=== PATIENT | female | born 1950 | race Caucasian/White ===

== ENCOUNTER 2017-12-03 12:45 | Emergency (ER) | payer MEDICARE ==
[2017-12-03 14:36] LABS: BASOPHILS % (AUTO) 0.5 %; EOSINOPHILS % (AUTO) 0.6 %; LYMPHOCYTES # (AUTO) 1.3 10^3/uL (1.5-3.5); LYMPHOCYTES % (AUTO) 15.9 %; MEAN CORPUSCULAR HEMOGLOBIN 29.1 pg (27.0-31.0); MEAN CORPUSCULAR HGB CONC 33.6 g/dL (32.0-36.0); MEAN CORPUSCULAR VOLUME 86.8 fL (81.0-99.0); MEAN PLATELET VOLUME 8.4 fL (7.9-10.8); MONOCYTES # (AUTO) 0.7 10^3/uL (0.0-1.0); MONOCYTES % (AUTO) 8.8 %; NEUTROPHILS % (AUTO) 74.2 %; PLT - PLATELET COUNT 310 10^3/uL (130-450); RED BLOOD COUNT 4.45 10^6/uL (4.20-5.40); RED CELL DISTRIBUTION WIDTH 12.8 % (12.0-15.0)
[2017-12-03 14:50] LABS: ALBUMIN 3.5 g/dL (3.2-5.5); ALBUMIN/GLOBULIN RATIO 0.9 (1.0-2.2); BILIRUBIN,TOTAL 0.4 mg/dL (0.2-1.0); CALCIUM 9.3 mg/dL (8.5-10.3); CREATININE 0.6 mg/dL (0.4-1.0); TOTAL PROTEIN 7.2 g/dL (6.7-8.2)
--- NOTE | 2017-12-03 16:51 | ED Physician Documentation ---
History of Present Illness - Stated complaint Stated Complaint: S/P SURGERY DRAIN BAG - Chief complaint Chief Complaint: Abd Pain - History obtained from History obtained from: Patient - History of Present Illness Timing: Today Pain level max: 0 Pain level now: 0 Improved by: nothing Worsened by: nothing - Additonal information Additional information: Patient is a 67-year-old female who is status post laparoscopic cholecystectomy at [facility] 4 days ago. She has a SCOTT drain in place and states there was bloody drainage in the SCOTT drain today. Called her surgeon who referred her to the closest ER. No fevers. No vomiting. No pain. Review of Systems Constitutional: denies: Fever, Chills Ears: denies: Ear pain Nose: denies: Rhinorrhea / runny nose, Congestion Respiratory: denies: Cough GI: denies: Vomiting, Hematemesis, Bloody / black stool : denies: Dysuria Skin: denies: Rash Musculoskeletal: denies: Neck pain, Back pain Neurologic: denies: Headache PD PAST MEDICAL HISTORY - Past Medical History Past Medical History: No - Past Surgical History Past Surgical History: No - Present Medications Home Medications: Ambulatory Orders Medication Instructions Recorded Confirmed No Known Home Medications [No 12/03/17 12/03/17 Known Home Medications] - Allergies Allergies/Adverse Reactions: Allergies Allergy/AdvReac Type Severity Reaction Status Date / Time No Known Drug Allergies Allergy Verified 12/03/17 12:56 - Living Situation Living Situation: reports: With family Living Arrangement: reports: At home - Social History Does the pt have substance abuse?: No - Family History Family history: reports: Non contributory PD ED PE NORMAL - Vitals Vital signs reviewed: Yes - General General: Alert and oriented X 3, No acute distress - HEENT HEENT: Moist mucous membranes - Neck Neck: Supple, no meningeal sign - Cardiac Cardiac: RRR - Respiratory Respiratory: No respiratory distress, Clear bilaterally - Abdomen Abdomen: Soft, Non tender, Non distended, Other (inicisions are CDI without signs of infection.) - Derm Derm: Warm and dry - Neuro Neuro: Alert and oriented X 3 - Psych Psych: Normal mood, Normal affect Results - Vitals Vitals: Vital Signs - 24 hr 12/03/17 12/03/17 12/03/17 12:51 15:28 17:33 Temperature 36.8 C Heart Rate 77 76 76 Respiratory 16 16 15 Rate Blood Pressure 129/61 129/57 L 127/80 O2 Saturation 99 95 99 Oxygen O2 Source Room air - Labs Labs: Laboratory Tests 12/03/17 12/03/17 14:33 14:33 WBC 8.0 RBC 4.45 Hgb 13.0 Hct 38.6 MCV 86.8 MCH 29.1 MCHC 33.6 RDW 12.8 Plt Count 310 MPV 8.4 Neut # 6.0 Lymph # 1.3 L [place] # 0.7 Eos # 0.0 Baso # 0.0 Absolute Nucleated RBC 0.00 Nucleated RBC % 0.0 Sodium 141 Potassium 4.1 Chloride 102 Carbon Dioxide 28 Anion Gap 11.0 BUN 15 Creatinine 0.6 Estimated GFR (MDRD) 99 Glucose 103 H Calcium 9.3 Total Bilirubin 0.4 AST 32 ALT 48 Alkaline Phosphatase 51 Total Protein 7.2 Albumin 3.5 Globulin 3.7 Albumin/Globulin Ratio 0.9 L Lipase 27 PD MEDICAL DECISION MAKING - ED course Complexity details: reviewed results, re-evaluated patient, considered differential, d/w patient, d/w family, d/w organizational effectiveness consultant ED course: Patient is a 67-year-old female who presents to the emergency department with bloody drainage into her SCOTT drain from her recent cholecystectomy. Hemoglobin and hematocrit are stable from her presurgical laboratory values. Discussed the case with Dr. Hassan, general surgery who performed her surgery and she will follow-up in the office on Tuesday. Patient is very well-appearing, nontoxic. Normal vital signs. No evidence of excessive hemorrhage. No evidence of infection. Patient counseled regarding signs and symptoms for which I believe and urgent re-evaluation would be necessary. Patient with good understanding of and agreement to plan and is comfortable going home at this time This document was made in part using voice recognition software. While efforts are made to proofread this document, sound alike and grammatical errors may occur. Patient has not restarted any of her warfarin yet. We will continue to hold this Departure - Departure Disposition: Home, Self Care Clinical Impression: SCOTT drain bleeding Qualifiers: Encounter type: initial encounter Qualified Code(s): T85.838A - Hemorrhage due to other internal prosthetic devices, implants and grafts, initial encounter Condition: Good Instructions: ED Wound Check Post Op Bleeding Follow-Up: Elvia Phelan MD [Primary Care Provider] - Comments: I spoke with Dr. Hassan today, she would like to see you in clinic on Tuesday. Return sooner if you worsen. Discharge Date/Time: 12/03/17 17:33
[2017-12-03 17:35] VITALS: BP 127/80
== END 2017-12-03 17:33 | disposition home or self-care (01) ==
LOC: ED 12:45
DX: T85.838A Hemorrhage due to other internal prosthetic devices, implants and grafts, initial encounter (principal); Z98.890 Other specified postprocedural states
CPT/HCPCS: 36415; 80053; 83690; 85025; 99282; 99283

== ENCOUNTER 2023-07-26 15:37 | Outpatient (CLI) | payer MEDICARE | END 2023-07-26 15:38 | disposition home or self-care (01) | LOC: LAB.N 15:37 | PROVIDERS: ATTEND Nurse Practitioner | DX: D68.69 Other thrombophilia (principal); Z79.01 Long term (current) use of anticoagulants; I48.0 Paroxysmal atrial fibrillation | CPT/HCPCS: 36416; 85610 ==

== ENCOUNTER 2023-08-03 10:01 | Outpatient (CLI) | payer MEDICARE ==
--- NOTE | 2023-08-10 15:36 | Mammography Report ---
BILATERAL DIGITAL SCREENING MAMMOGRAM 3D/2D: 08/03/2023 CLINICAL: Routine screening. No prior exams were available for comparison. Both breasts are heterogeneously dense, which may obscure small masses (category c / 51-75% glandular tissue). There are benign calcifications in both breasts. No significant masses, calcifications, or other findings are seen in either breast. IMPRESSION: BENIGN There is no mammographic evidence of malignancy. A 1 year screening mammogram is recommended. Based on the Tyrer Cuzick model (a risk assessment model) the patients lifetime risk is 8.3% and her 10 year risk is 8.3%. According to the ACR, ACS, and NCCN guidelines, an annual breast MRI exam theodore g with mammogram is recommended if the patients lifetime risk is 20% or greater. This exam was interpreted at Station ID: [id number]. NOTE: For mammograms, a report in lay terms will be sent to the patient. Approximately 15% of breast malignancies will not be visualized mammographically. In the management of a palpable breast mass, a negative mammogram must not discourage biopsy of a clinically suspicious lesion. Electronically Signed By: Boom gonzales/erica:08/10/2023 08:24:30 letter sent: No_Letter ACR BI-RADS Category 2: Benign Finding(s) 3342F PARENCHYMAL PATTERN: (D) - The breast(s) demonstrate(s) heterogeneously dense fibroglandular parenchy ma. BI-RADS CATEGORY: (2) - 2 Mammogram [id number] 1 year screening LATERALITY: (B)
== END 2023-08-03 10:02 | disposition home or self-care (01) ==
LOC: DI 10:01
PROVIDERS: ATTEND Nurse Practitioner
DX: Z12.31 Encounter for screening mammogram for malignant neoplasm of breast (principal); R92.333 Mammographic heterogeneous density, bilateral breasts

== ENCOUNTER 2023-08-03 10:01 | Outpatient (CLI) | payer MEDICARE ==
--- NOTE | 2023-08-03 13:19 | DEXA Report ---
PROCEDURE: Dexa Spine and/or Hip INDICATIONS: POST MENOPAUSAL TECHNIQUE: Dual energy x-ray absorptiometry (DXA) was performed on a iSites System. Regions measur ed are the AP Spine, femoral neck, and if needed forearm. COMPARISON: None FINDINGS: Lumbar Spine: Bone Mineral Density 1.279 g/cm/cm,T score 0.8. Normal Left Femoral Neck: Bone Mineral Density 0.963 g/cm/cm, T score -0.5, normal. Left Hip: Bone Mineral Density 0.959 g/cm/cm,T score -0.4. Normal (T score greater or equal to -1.0: NORMAL) (T score from -1.1 to -2.4: OSTEOPENIA) (T score less than or equal to -2.5 to: OSTEOPOROSIS) Impression: By WHO criteria, this patient has normal bone density. Patients with diagnosis of osteoporosis or osteopenia should have regular bone mineral density assess ment. For those eligible for Medicare, routine testing is allowed once every 2 years. Testing frequ ency can be increased for patients who have rapidly progressing disease or for those who are receivin g medical therapy to restore bone mass. Reviewed by: Funmi Wood MD on 08/03/2023 1:18 PM PST Approved by: Funmi Wood MD on 08/03/2023 1:18 PM PST Station ID: [id number]
== END 2023-08-03 10:02 | disposition home or self-care (01) ==
LOC: DI 10:01
PROVIDERS: ATTEND Nurse Practitioner
DX: Z78.0 Asymptomatic menopausal state (principal)

== ENCOUNTER 2023-08-05 08:00 | Outpatient (CLI) | payer MEDICARE | END 2023-08-05 23:59 | disposition home or self-care (01) | LOC: LAB.WCP 08:00 | PROVIDERS: ATTEND Nurse Practitioner | DX: Z79.01 Long term (current) use of anticoagulants (principal); D68.69 Other thrombophilia; I48.0 Paroxysmal atrial fibrillation ==

== ENCOUNTER 2023-08-05 09:44 | Outpatient (CLI) | payer MEDICARE ==
--- NOTE | 2023-08-05 10:43 | Sleep Patient Instructions ---
Sleep Center Visit Summary - Patient Visit Information Reason for Visit: Initial consult for evaluation of sleep disordered breathing and other sleep issues. - Patient Instructions Instructions Attached: Sleep Study Additional Instructions: You will be completing a sleep study, either an in-lab polysomnography (PSG) or home sleep study (HST). You will follow-up in the sleep care office after the sleep study is completed to hear the results and talk about therapy, if needed. You will be called by our office staff to schedule this appointment, but you may contact us with any questions. - Clinic Information Contact: [facility] [address] [place] [address] [email or web address] T: [phone]
--- NOTE | 2023-08-05 10:48 | SLEEP CARE CONSULTATION ---
Information from patient questionnaire entered by Stella Saab. I have reviewed and concur with the information entered by Stella Saab. This document represents the service I personally performed and the decisions made by me, Cecilia Kerr ARNP. History of Present Illness Service Date and Time: 08/05/2023 0944 Reason for Visit: New patient Chief Complaint: reports: Excessive daytime sleepiness, Other (SOB DURING EXCERCISE) Date of Onset: 1+YR Usual bedtime: 11PM-12AM Time it takes to fall asleep: 5-10MIN Snores at night: No Observed to quit breathing while asleep: No Number of times waking at night: 2-4 Reasons for waking at night: reports: Gasping for air (2-3 TIMES IN LAST 6M ONTHS), Bathroom, Other (UNKNOWN). denies: Choking, Snoring Toss, Turn, or Twitch while sleeping: No Recalls having dreams: Yes Usually gets out of bed at: 7-730AM Feels refreshed in the morning: Yes Morning headache: Yes (occasionally does, unsure of how often) Sleepy or fatigued during the day: Yes Ever fallen asleep while driving: No Takes day naps: Yes (almost every day; 1-1.5 hours) Dreams during day naps: Yes Prior sleep studies: No Additional HPI information: I had the pleasure of seeing JOE COREAS today regarding the possibility of her having a sleep disorder. Her current complaints are excessive daytime sleepiness and shortness of breath with exercise. She says she is out of shape and when she started trying to get into shape and found that she is having shortness of breath with exercise. She followed up with PCP and supervisor claims. She has gone through some testing to check out her heart which were inconclusive. She did also see pulmonary to check her lungs. She does not have "good breath" but her oxygen levels stay up well even during exercise. They have sent her here to rule out PIERRE. She says she lives alone but she has slept in same room as sister who has not told her she snores. She has times when she has woken up gasping for air but resolves with calming herself. She has had this occasionally during the day and it resolves with "calming down". She has not had these in long time and does not sleep in her bed, she sleeps laying on couch with pillows. She says she normally feels rested in the morning but is a slow gizzard skin remover in the mornings. She does usually take a nap for 1-1.5 hours during most days. - Parasomnia Symptoms Ever been unable to move upon waking from sleep: No Walks in sleep: No Talks in sleep: No Ever acted out dreams in sleep: No Ever felt weak in the knees when startled or emotional: No Bothered by creepy, crawly, restless sensations in legs: No Problems with memory or concentration: No Subjective Initial [place] Sleepiness Scale score: 7 (06/28/23) Past Medical History Past Medical History: reports: Hypertension, Arthritis, Coronary Heart Disease, Other (A FIB, ablation 2014?) Social History The patient's occupation is a TEACHER. Patient is Single and lives in [place]. Have you smoked in the past 12 months: No Alcohol use: Yes Alcohol amount and frequency: 1-2 DRINKS 1-2 TIMES A MONTH Caffeine use: Yes Caffeine amount and frequency: 1 PER DAY 1-2 TIMES A WEEK Family History Family history of sleep disordered breathing: No Allergies and Home Medications Known drug allergies: Yes (GLAUCOMA EYE DROPS) Drug allergies reviewed: Yes Home medication list reviewed: Yes Allergy and home medication list: Home Medications Medication Instructions Recorded Confirmed Last Taken Type Carboxymethylcellulose Sodium See Rx Instructions .ROUTE .COMPLEX 08/05/23 08/05/23 Unknown History [Artificial Tears] Cholecalciferol (Vitamin D3) See Rx Instructions .ROUTE .COMPLEX 08/05/23 08/05/23 Unknown History [Vitamin D3] Losartan/Hydrochlorothiazide See Rx Instructions .ROUTE .COMPLEX 08/05/23 08/05/23 Unknown History [Losartan-Hctz 100-12.5 mg Tab] Metoprolol Succinate [Toprol Xl] See Rx Instructions .ROUTE .COMPLEX 08/05/23 08/05/23 Unknown History Omeprazole Magnesium See Rx Instructions .ROUTE .COMPLEX 08/05/23 08/05/23 Unknown History Rosuvastatin Calcium See Rx Instructions .ROUTE .COMPLEX 08/05/23 08/05/23 Unknown History Warfarin [Coumadin] See Rx Instructions .ROUTE .COMPLEX 08/05/23 08/05/23 Unknow n History Review of Systems Weight gain over past 5 years: 5 Cardiovascular: reports: high blood pressure, palpitations Respiratory: reports: shortness of breath, sputum production Gastrointestinal: reports: diarrhea Urinary: reports: incontinence Neurological: denies: headaches Ear/Nose/Throat: reports: nasal congestion, wisdom teeth removed. denies: tonsillectomy Endocrine: reports: sluggishness Physical Exam Vital signs obtained and entered by: STELLA Devine MA Blood Pressure: 126/78 (LEFT ARM) Cuff size: regular Heart Rate: 76 O2 Saturation: 98 Height: 5 ft 4.5 in Weight: 153 lb 9.6 oz Body Mass Index: 25.9 BMI Classification: Overweight Neck circumference: 15.5 Mouth and throat: narrow oropharynx Soft palate: long Hard palate: normal Uvula: long Uvula visualization: 25% Mallampati Class III Tongue: enlarged in size with teeth mueller on lateral edges Tonsils: small Neck: normal w/o lymphadenopathy or thyromegaly Heart: regular rate and rhythm Lungs: clear bilaterally Impression and Plan 1. Suspected Obstructive Sleep Apnea-Hypopnea Syndrome, as suggested by a history of gasping or choking in sleep, and excessive daytime sleepiness. Narrow oropharynx and obesity are common predisposing factors for obstructive sleep apnea-hypopnea syndrome. I recommend proceeding to polysomnography to confirm the diagnosis and to assess severity. If the patient has significant sleep disordered breathing, a manual CPAP titration study will also be performed to find the optimal treatment pressure. I informed the patient of what the sleep studies involve and after some discussion, obtained agreement to proceed. The pathophysiology of obstructive sleep apnea-hypopnea syndrome was discussed with the patient and health risks of cardiovascular and cerebrovascular disease if not treated. Risks of drowsy driving discussed in detail and patient advised to avoid long distance driving and to insole tack puller hand at the first sign of drowsiness. Patient agreed to plan. * Schedule polysomnography. * Avoid long distance driving or driving when feeling sleepy. * Avoid alcohol, sedative and muscle relaxant around bedtime. * Attempt to lose weight. * Review instructions provided by trained office staff on how to prepare for the sleep study. * Return for follow-up after sleep study completed. Counseling Topics: Weight loss health impact Plan: PSG Visit Type: In Office Time Spent with Patient (minutes): 30 Provider Statement: I spent 100% of the Face to Face Visit with the patient with greater than 50% spent counseling the patient and coordination of care.
[2023-08-05 10:51] VITALS: BP 126/78; O2SAT 98
== END 2023-08-05 09:45 | disposition home or self-care (01) ==
LOC: SC 09:44
PROVIDERS: ATTEND Nurse Practitioner Family
DX: G47.10 Hypersomnia, unspecified (principal); G47.8 Other sleep disorders
CPT/HCPCS: 99203; G0463; 99212

== ENCOUNTER 2023-09-02 08:00 | Outpatient (CLI) | payer MEDICARE | END 2023-09-02 08:01 | disposition home or self-care (01) | LOC: LAB.N 08:00 | PROVIDERS: ATTEND Nurse Practitioner | DX: D68.69 Other thrombophilia (principal); Z79.01 Long term (current) use of anticoagulants ==

== ENCOUNTER 2023-09-17 20:26 | Outpatient (CLI) | payer MEDICARE | END 2023-09-17 20:27 | disposition home or self-care (01) | LOC: SC 20:26 | PROVIDERS: ATTEND Nurse Practitioner Family | DX: G47.33 Obstructive sleep apnea (adult) (pediatric) (principal) | CPT/HCPCS: 95810 ==

== ENCOUNTER 2023-09-27 14:01 | Outpatient (CLI) | payer MEDICARE ==
--- NOTE | 2023-09-27 13:55 | SLEEP CARE CONSULTATION ---
Information from patient questionnaire entered by Stella Saab. I have reviewed and concur with the information entered by Stella Saab. This document represents the service I personally performed and the decisions made by , Cecilia Kerr ARNP. History of Present Illness Service Date and Time: 09/27/2023 1400 Initial [place] Sleepiness Scale score: 7 (06/28/23) Current [place] Sleepiness Scale score: 8 (09/27/23) Additional HPI information: JOE COREAS returns via video appointment for follow up and results of the recently performed polysomnography. The sleep study showed mild obstructive sleep apnea with an average AHI of 10.7 and elly oxygen saturation of 84%. I explained the pathophysiology behind obstructive sleep apnea. We then spent quite a bit of time discussing different treatment options. For mild obstructi ve sleep apnea, surgery and oral appliance are alternatives to nasal CPAP therapy but in moderate or severe cases, nasal CPAP is the most effective and reliable treatment. I reviewed the impact of weight changes on sleep apnea. After some discussion, the patient opted to go with the nasal CPAP therapy. Nasal autoCPAP set at 4-15 cmH20 will be ordered with rationale explained. A manual titration study will be ordered if unable to find optimal pressure with office adjustments. I explained how CPAP machine works and what to expect when using the machine. Using CPAP every night in order to get used to it was emphasized. Patient advised to put CPAP mask on before getting into bed so as not to fall asleep without CPAP. To assist acclimation to CPAP use, it could also be used for a short time during day while reading or watching TV. The patient was instructed to call the CPAP supplier to discuss any mechanical problem that may occur. If the mask given is uncomfortable or is difficult to keep on through the night even with adjustment, contact the CPAP supplier as many will replace with another mask style if notified before 30 days. If snoring or perceives is not getting enough air or too much air from the machine, notify this office. Patient counseled not drink alcohol less than 4 hours before bedtime as it can increase snoring and apnea. Patient was cautioned about risks of drowsy driving until sleepiness symptoms resolve. Patient denies drowsy driving. Sleep Study - Results Type of Sleep Study: Home sleep study (COMPLETED 09/17/23) Prior sleep studies: No Polysomnography/Home Sleep Study results: IMPRESSION: The quality of the study is good. The patient had poor sleep efficiency due to sleep onset insomnia and prolonged awakenings during the night. The sleep architecture was abnormal for sleep fragmentation and reduced amount of time spent in REM and slow wave sleep (N3). Respiratory monitoring showed mild obstructive sleep apnea-hypopnea (AHI = 10.7) associated with frequent arousals, oxyhemoglobin desaturation and mild hypoxia (elly oxygen saturation of 84%). The respiratory events occurred almost exclusively during REM sleep. The patient did not sleep supine during this study (supine AHI = 0.0; non-supine = 10.66). Snore was infrequent and light in intensity. There was no significant periodic leg movement of sleep. Cardiac rhythm was normal sinus rhythm without significant arrhythmia. No abnormal behavior (parasomnia) observed during the night. Allergies and Home Medications Known drug allergies: No Drug allergies reviewed: Yes Home medication list reviewed: Yes (no changes) Allergy and home medication list: Allergies No Known Drug Allergies Allergy (Verified 09/27/23 09:57) Review of Systems Review of systems same as previous: Yes (NO CHANGE) Physical Exam Vital signs obtained and entered by: STELLA Devine MA Height: 5 ft 4.5 in (PER PT) Weight: 150 lb (PER PT) Body Mass Index: 25.3 BMI Classification: Overweight Impression and Plan 1. Obstructive Sleep Apnea-Hypopnea Syndrome, mild, with lowest oxygen saturation of 84%. Obviously this is the cause of the patients symptoms of unrefreshed sleep, and excessive daytime sleepiness. Positive pressure therapy could benefit hypertension, cardiac disease (CHD) and arrhythmia (atrial fibrillation). As mentioned above, the patient will be started on nasal autoCPAP therapy with pressure set at 4-15 cmH2O. A manual titration study will be completed if unable to find optimal treatment pressure with office adjustments. Compliance guidelines also reviewed. A copy of compliance guidelines will be given for reference at check out. 2. Hypoxemia, mild, with a elly oxygen saturation of 84% and 3.4 minutes spent under 90%. The baseline oxygen saturation was normal with an average oxygen saturation of 92%. * Nasal auto CPAP therapy, pressure at 4-15 cm H2O. * Maintain a healthy weight. * Avoid alcohol consumption near bedtime. * Avoid supine sleep until using CPAP. * The patient is again cautioned about driving until sleepiness completely resolves. * Return one month after CPAP obtained. I will assess response to therapy and compliance at that time. Counseling Topics: Weight loss health impact Prescriptions: Auto CPAP Visit Type: Telehealth Video Video Type: Doximity Patient Location: Home Location of Provider: Office Patient agrees and consents to this telehealth visit type: Yes Patient agrees to have their insurance billed: Yes Time Spent with Patient (minutes): 20 Provider Statement: I spent 100% of the Telehealth Video Call with the patient with greater than 50% spent counseling the patient and coordination of care.
== END 2023-09-27 14:02 | disposition home or self-care (01) ==
LOC: SC 14:01
PROVIDERS: ATTEND Nurse Practitioner Family
DX: G47.33 Obstructive sleep apnea (adult) (pediatric) (principal); R09.02 Hypoxemia; E66.3 Overweight; Z68.25 Body mass index [BMI] 25.0-25.9, adult

== ENCOUNTER 2023-10-18 07:57 | Outpatient (CLI) | payer MEDICARE ==
[2023-10-18 13:10] LABS: CHOL/HDL RATIO 3.2 (<4.4); CHOLESTEROL 136 mg/dL; HDL CHOLESTEROL 43 mg/dL; LDL CHOLESTEROL,CALCULATED 68 mg/dL; LDL/HDL RATIO 1.6 (<4.4); TRIGLYCERIDES 127 mg/dL (48-352); VLDL CHOLESTEROL 25 mg/dL
== END 2023-10-18 07:58 | disposition home or self-care (01) ==
LOC: LAB.N 07:57
PROVIDERS: ATTEND Nurse Practitioner
DX: E78.5 Hyperlipidemia, unspecified (principal)
CPT/HCPCS: 36415; 80061; 83721

== ENCOUNTER → 2023-11-14 | Outpatient (CLI) | payer MEDICARE | LOC: LAB.N 08:00 | PROVIDERS: ATTEND Nurse Practitioner | DX: D68.69 Other thrombophilia (principal); Z79.01 Long term (current) use of anticoagulants ==

== ENCOUNTER → 2023-11-28 | Outpatient (CLI) | payer MEDICARE | LOC: LAB.N 08:00 | PROVIDERS: ATTEND Nurse Practitioner | DX: I48.0 Paroxysmal atrial fibrillation (principal); Z79.01 Long term (current) use of anticoagulants; D68.69 Other thrombophilia ==

== ENCOUNTER 2023-12-02 15:01 | Outpatient (CLI) | payer MEDICARE ==
--- NOTE | 2023-12-02 15:57 | XRAY Report ---
PROCEDURE: Shoulder 2+V LT INDICATIONS: SHOULDER PAIN, LEFT TECHNIQUE: 3 views of the shoulder were acquired. COMPARISON: None. FINDINGS: Bones: No fractures or dislocations. Mild glenohumeral and moderate acromioclavicular joint degenera tion. No suspicious bony lesions. Visualized ribs appear intact. Soft tissues: No suspicious soft tissue calcifications. The visualized lungs are within normal limi ts. IMPRESSION: No acute bony abnormality. Mild glenohumeral and moderate acromioclavicular joint degeneration. Reviewed by: Mark Collins MD on 12/02/2023 3:56 PM PDT Approved by: Mark Collins MD on 12/02/2023 3:56 PM PDT Station ID: [id number]
== END 2023-12-02 15:02 | disposition home or self-care (01) ==
LOC: DI.N 15:01
PROVIDERS: ATTEND Nurse Practitioner
DX: M19.012 Primary osteoarthritis, left shoulder (principal)

== ENCOUNTER 2023-12-26 08:00 | Outpatient (CLI) | payer MEDICARE | END 2023-12-26 08:01 | disposition home or self-care (01) | LOC: LAB.WCP 08:00 | PROVIDERS: ATTEND Nurse Practitioner | DX: I48.0 Paroxysmal atrial fibrillation (principal); Z79.01 Long term (current) use of anticoagulants; D68.69 Other thrombophilia ==

== ENCOUNTER 2024-03-05 08:00 | Outpatient (CLI) | payer MEDICARE | END 2024-03-05 23:59 | disposition home or self-care (01) | LOC: LAB.WCP 08:00 | PROVIDERS: ATTEND Nurse Practitioner | DX: I48.0 Paroxysmal atrial fibrillation (principal); D68.69 Other thrombophilia; Z79.01 Long term (current) use of anticoagulants ==